=== PATIENT | female | born 1940 | race Caucasian/White ===

== ENCOUNTER → 2025-02-26 | Outpatient (CLI) | payer SELFPAY ==
[2025-02-27 12:28] LABS: Appearance, Urine Hazy (Clear); Bilirubin, Urine Neg (Neg); Blood, Urine 2+ (Neg); Color, Urine Yellow (P-Yellow); Glucose Qualitative, Urine Neg (Neg); Ketones, Urine Neg (Neg); Leukocyte Esterase, Urine 3+ (Neg); Nitrite, Urine Neg (Neg); Protein, Urine 1+ (Neg); Specific Gravity, Urine 1.005 (1.003-1.022); Urobilinogen, Urine NORM (Normal)
[2025-02-27 12:37] LABS: Bacteria Many /hpf; Squamous Epithelial Cells Many /hpf (Few); White Blood Cells, Urine 25-50 /hpf (0-5)
== END | disposition home or self-care (01) ==
LOC: LAB SHORT 10:00
PROVIDERS: Hospitalist
DX: N39.0 Urinary tract infection, site not specified (principal)
CPT/HCPCS: 81001

== ENCOUNTER 2025-03-06 07:42 | Observation (INO) | payer OTHER ==
[~2025-03-06] VITALS: Ht 160 cm; Wt 68.3 kg
[2025-03-06 09:11] LABS: BASOPHILS ABSOLUTE AUTO 0.03 K/mm3 (0.00-0.23); BASOPHILS PERCENT AUTO 0 % (0-2); EOSINOPHILS ABSOLUTE AUTO 0.02 K/mm3 (0.00-0.68); EOSINOPHILS PERCENT AUTO 0 % (0-6); Hematocrit 40.9 % (33.0-51.0); Hemoglobin 14.1 g/dL (11.5-16.0); IMMATURE GRAN ABSOLUTE AUTO 0.02 K/mm3 (0.00-0.10); IMMATURE GRAN PERCENT AUTO 0 % (0-1); LYMPHOCYTES ABSOLUTE AUTO 0.72 K/mm3 (0.84-5.20); LYMPHOCYTES PERCENT AUTO 9 % (21-46); MONOCYTES ABSOLUTE AUTO 0.59 K/mm3 (0.16-1.47); MONOCYTES PERCENT AUTO 8 % (4-13); Mean Corpuscular HGB 34.4 pg (26.0-34.0); Mean Corpuscular HGB Conc 34.5 g/dL (31.5-36.5); Mean Corpuscular Volume 100 fL (80-100); Mean Platelet Volume 9.8 fL (9.1-12.4); NEUTROPHILS PERCENT AUTO 82 % (41-73); Platelet Count 126 K/mm3 (150-400); RDW Coefficient Variation 12.4 % (11.7-14.2); RDW Standard Deviation 44.8 fL (35.1-46.3); White Blood Cell Count 7.78 K/mm3 (4.00-11.30)
[2025-03-06] MEDS ORDERED: NS 1,000 ML IV SCH ×2 (09:15→18:10)
[2025-03-06 09:36] LABS: Albumin, Blood 3.8 g/dL (3.4-5.0); Albumin/Globulin Ratio 1.1 (0.8-1.8); Bilirubin, Total 0.5 mg/dL (0.1-1.0); Bun/Creatinine Ratio 24.1 (12.0-20.0); Calcium, Blood 9.9 mg/dL (8.5-10.1); Creatinine, Blood 0.79 mg/dL (0.40-1.00); Globulin, Blood 3.6 g/dL (2.2-4.0); Potassium, Blood 3.9 mmol/L (3.5-5.5); Total Protein, Blood 7.4 g/dL (6.4-8.2)
[2025-03-06 10:30] LABS: Source, Urine Clean Catch
[2025-03-06 10:45] LABS: Appearance, Urine Clear (Clear); Bilirubin, Urine Neg (Neg); Blood, Urine Neg (Neg); Glucose Qualitative, Urine Neg (Neg); Ketones, Urine 1+ (Neg); Leukocyte Esterase, Urine Neg (Neg); Nitrite, Urine Neg (Neg); Protein, Urine 1+ (Neg); Specific Gravity, Urine 1.015 (1.003-1.022); Urobilinogen, Urine NORM (Normal)
[2025-03-06 10:47] LABS: Color, Urine Pale Yellow (P-Yellow)
[2025-03-06 13:55] LABS: Base Excess Venous 1.9 mmol/L; Bicarbonate Venous 25.5 mmol/L (24.0-30.0); PCO2 Venous 47.5 mmHg (38-42); pH Blood Venous 7.37 (7.34-7.37)
[2025-03-06 14:35] LABS: Influenza A, PCR NEGATIVE (NEGATIVE); Influenza B, PCR NEGATIVE (NEGATIVE); Resp Syncytial Virus, PCR NEGATIVE (NEGATIVE); SARS-Cov-2 (COVID-19) PCR, MMC NEGATIVE (NEGATIVE)
[2025-03-06 20:44] VITALS: BP 125/66
[2025-03-07 02:27] VITALS: BP 123/69
[2025-03-07 06:30] LABS: BASOPHILS ABSOLUTE AUTO 0.04 K/mm3 (0.00-0.23); BASOPHILS PERCENT AUTO 1 % (0-2); EOSINOPHILS ABSOLUTE AUTO 0.16 K/mm3 (0.00-0.68); EOSINOPHILS PERCENT AUTO 2 % (0-6); Hematocrit 39.8 % (33.0-51.0); Hemoglobin 13.4 g/dL (11.5-16.0); IMMATURE GRAN ABSOLUTE AUTO 0.02 K/mm3 (0.00-0.10); IMMATURE GRAN PERCENT AUTO 0 % (0-1); LYMPHOCYTES PERCENT AUTO 20 % (21-46); MONOCYTES ABSOLUTE AUTO 0.79 K/mm3 (0.16-1.47); MONOCYTES PERCENT AUTO 11 % (4-13); Mean Corpuscular HGB 34.3 pg (26.0-34.0); Mean Corpuscular HGB Conc 33.7 g/dL (31.5-36.5); Mean Corpuscular Volume 102 fL (80-100); Mean Platelet Volume 9.4 fL (9.1-12.4); NEUTROPHILS ABSOLUTE AUTO 4.73 K/mm3 (1.96-9.15); NEUTROPHILS PERCENT AUTO 66 % (41-73); Platelet Count 121 K/mm3 (150-400); RDW Coefficient Variation 12.6 % (11.7-14.2); RDW Standard Deviation 46.5 fL (35.1-46.3); Red Blood Cell Count 3.91 M/mm3 (3.80-5.20); White Blood Cell Count 7.14 K/mm3 (4.00-11.30)
--- NOTE | 2025-03-07 06:35 | NUR ---
SHIFT SUMMARY PATIENT IS ALERT AND ORIENTED TO SELF ONLY. PATIENT HAS HAD NO ACUTE EVENTS THIS SHIFT. PATIENT HAS BEEN SLEEPING SINCE ADMIT. PATIENT HAS NO COMPLAINTS OF PAIN, NAUSEA, SOB OR VOMITTING. BED IN LOCKED AND LOWEST POSITION. PATIENT IS ON 2L NC.
[2025-03-07 07:02] LABS: Anion Gap 10 mmol/L (3-11); Blood Urea Nitrogen 12 mg/dL (8-24); Bun/Creatinine Ratio 18.3 (12.0-20.0); CHOL/HDL RATIO 2.4; CO2, Blood 24 mmol/L (21-32); Calcium, Blood 8.7 mg/dL (8.5-10.1); Chloride, Blood 110 mmol/L (98-108); Cholesterol 113 mg/dL (50-200); Creatinine, Blood 0.66 mg/dL (0.40-1.00); Glomerular Filtration Rate 85 (60-); Glucose, Blood 89 mg/dL (70-99); HDL Cholesterol 47 mg/dL (>39); LDL/HDL RATIO 0.8; Low Density Lipoprotein Chol 36 mg/dL (0-110); Potassium, Blood 3.6 mmol/L (3.5-5.5); Sodium, Blood 140 mmol/L (136-145); Triglycerides 148 mg/dL (30-160); Very Low Density Lipoprot Chol 29 mg/dL (6-32)
[2025-03-07 07:39] VITALS: BP 125/77
[2025-03-07] MEDS ORDERED: Enoxaparin 40 MG/0.4 ML SYR SC SCH (09:00)
[2025-03-07] MEDS ORDERED: Metoprolol Succinate 25 MG TABCR PO SCH (09:00)
[2025-03-07 15:16] VITALS: BP 115/63
--- NOTE | 2025-03-07 16:37 | NUR ---
PT HAS BEEN AOX3 WITH CONFUSION. PT CAN BE CONTENT AND INCONTENT OF BOWEL AND BLADDER. PT NEEDS BED ALARM AND CHAIR ALARM SHE WILL NOT USE CALL LIGHT WHEN NEEDED. PT HAS BEEN COOPERATIVE OF ALL CARE. PT IS A ONE TO TWO PERSON TRANSFER SOMETIMES NEEDS REDIRECTED AND THE EXTRA PERSON MAKES THE TRANSFER EASIER. CALL LIGHT IS IN REACH WILL CONTINUE TO MONITOR.
[2025-03-07 19:50] VITALS: BP 115/61
[2025-03-08 02:31] VITALS: BP 139/79
--- NOTE | 2025-03-08 04:18 | NUR ---
SHIFT SUMMARY PT ADMITTED FOR ACUTE HYPOXIC RESPIRATORY FAILURE. . PT IS DNR , ON ROOM AIR, AND IS ALERT AND ORIENTED TIMES 3. PT IS 1 PERSON ASSIST TO BEDSIDE COMMODE. . PT HAS NO IV ACCESS ORDER AND IS INCONTINENT OR URINE AND BOWEL. PT IS RESIDENT OF [facility] AND MAY DC TOMMORROW. BED IS IN LOW POSITION, RAILS TIMES TWO, AND CALL LIGHT IS WITHIN REACH.
[2025-03-08 09:15] VITALS: BP 153/97
[2025-03-08] MEDS ORDERED: MELATONIN10 M1 PO (10:41)
[2025-03-08] MEDS ORDERED: CALCIUM 500 MG1 EAC7 PO (10:41)
[2025-03-08] MEDS ORDERED: METO25ER PO (10:42)
[2025-03-08] MEDS ORDERED: MEMA10 PO (10:42)
[2025-03-08] MEDS ORDERED: TRAZ50 PO (10:43)
[2025-03-08] MEDS ORDERED: Crestor40 MG PO (10:43)
[2025-03-08] MEDS ORDERED: CEPH500 PO (10:44)
[2025-03-08] MEDS ORDERED: NYAMYC15 G1 TOP (10:45)
[2025-03-08] MEDS ORDERED: IMODIUM A-D2 M1 PO (10:46)
[2025-03-08] MEDS ORDERED: Acetaminophen 325 MG TABLET PO ONE (14:10)
--- NOTE | 2025-03-08 15:37 | NUR ---
MET WITH PATIENT TO DISCUSS CODE STATUS. REVIEWED POLST. PATIENT ELECTED FOR DNR AND SELECTIVE TREATMENT. SIGNED BY PROVIDER, SENT TO MEDICAL RECORDS, AND OR POLST REGISTRY. ORIGINAL PLACED IN CHART.
--- NOTE | 2025-03-08 15:44 | NUR ---
DISCHARGE NOTE PT DISCHARGE TO HOME, [facility]. PICKED UP BY HER SON AND [id number]. PERSONAL BELONGINGS RETURNED. MEDICATIONS FAXED TO [facility]. TAKEN TO VEHICLE BY PRINCIPAL INVESTIGATOR IN A WHEELCHAIR. DISCHARGE INFORMATION REVIEWED WITH THE PT.
== END 2025-03-08 15:42 | disposition home health service (06) ==
LOC: ER 07:42 → MEDS 07:43 → ER 18:03 → MEDS 18:03
PROVIDERS: Physician Assistant; ADMIT Family Medicine
DX: J96.01 Acute respiratory failure with hypoxia (principal); J98.11 Atelectasis; F03.90 Unspecified dementia, unspecified severity, without behavioral disturbance, psychotic disturbance, mood disturbance, and anxiety; E78.5 Hyperlipidemia, unspecified; G47.00 Insomnia, unspecified; D69.6 Thrombocytopenia, unspecified; I10 Essential (primary) hypertension; E86.0 Dehydration; Z86.73 Personal history of transient ischemic attack (TIA), and cerebral infarction without residual deficits; Z99.81 Dependence on supplemental oxygen; Z66 Do not resuscitate
CPT/HCPCS: 0241U; 36415; 70450; 71046; 71260; 73502; 80048; 80053; 80061; 82803; 83036; 84443; 85025; 85379; 93005; 93010; 94760; 96360-59; 96361; 96372; 97110; 97116; 97162; 97165; 97535; 99285-25; A6590; A9270; G0378; J1650; J7030; P9612; Q9967

== ENCOUNTER → 2025-08-24 | Outpatient (CLI) | payer OTHER ==
[~2025-08-24] MED LIST: CALCIUM 500 MG1 EAC7 PO; CEPH500 PO; Crestor40 MG PO; IMODIUM A-D2 M1 PO; MELATONIN10 M1 PO; MEMA10 PO; METO25ER PO; NYAMYC15 G1 TOP; TRAZ50 PO
[2025-08-25 13:12] LABS: Bilirubin, Urine Neg (Neg); Color, Urine Yellow (P-Yellow); Glucose Qualitative, Urine Neg (Neg); Ketones, Urine Neg (Neg); Leukocyte Esterase, Urine 3+ (Neg); Protein, Urine 2+ (Neg); Specific Gravity, Urine 1.025 (1.003-1.022); Urobilinogen, Urine NORM (Normal)
[2025-08-25 13:23] LABS: Red Blood Cells, Urine 25-50 /hpf (0-2); White Blood Cells, Urine 50-100 /hpf (0-5)
== END ==
LOC: LAB SHORT 14:50 → LAB 14:50
PROVIDERS: Family Medicine
DX: N39.0 Urinary tract infection, site not specified (principal)
CPT/HCPCS: 81001; 87077; 87086; 87186

== ENCOUNTER → 2025-10-18 | Outpatient (CLI) | payer OTHER ==
[2025-10-18 11:48] LABS: Source, Urine Voided
[2025-10-18 13:27] LABS: Bilirubin, Urine Neg (Neg); Glucose Qualitative, Urine Neg (Neg); Ketones, Urine Neg (Neg); Leukocyte Esterase, Urine 3+ (Neg); Protein, Urine 2+ (Neg); Specific Gravity, Urine 1.010 (1.003-1.022); Urobilinogen, Urine NORM (Normal)
[2025-10-18 14:14] LABS: Color, Urine Pale Yellow (P-Yellow)
[2025-10-18 14:16] LABS: White Blood Cells, Urine TNTC /hpf (0-5)
== END ==
LOC: LAB SHORT 11:47 → LAB 11:47
PROVIDERS: Family Medicine
DX: N39.0 Urinary tract infection, site not specified (principal)
CPT/HCPCS: 81001; 87077; 87086; 87186